=== PATIENT | male | born 1960 | race Caucasian/White ===

== ENCOUNTER 2019-12-16 16:12 | Observation (INO) ==
[2019-12-16] MEDS ORDERED: ASPIRIN CHEW 324 MG PO STA (16:32)
[2019-12-16] MEDS ORDERED: NITROGLYCERIN 0.3 MG/1 TAB 100 TAB BTL SL PRN (16:32)
--- NOTE | 2019-12-16 16:36 | Emergency Department Note ---
Impression & Plan Chest pain, Leukocytosis, Elevated bilirubin ED Provider Note NAME: MAGALIS NGUYEN AGE: 59 SEX: M : 1960 ARRIVES VIA: Walk-In INFORMANT: Patient ED PROVIDER(S): Ankit Menon DO CHIEF COMPLAINT: Chest pain HPI: Patient is a 59-year-old male who presents the ER for precordial chest pain. Has been coming and going since yesterday. He notes that it radiates to his bilateral arms and goes through to his back from midsternum. He admits to feeling short of breath when it comes as well as some dizziness today. He has never had this before. He is a smoker. Denies any history of diabetes, hypertension, hyperlipidemia, CAD or sudden in the family at a young age. Patient denies swelling of calves, recent trips, history of immobilization or recent surgery, prior history of DVT, hemoptysis, and history of malignancy. No other exacerbating or remitting factors. ROS: See above HPI for pertinent positives & negatives. A total of 10 systems reviewed and were otherwise negative. PAST MEDICAL HISTORY:See Below PAST SURGICAL HISTORY:See Below FAMILY HISTORY:See Below SOCIAL HISTORY:See Below HOME MEDICATIONS:See Below ALLERGIES:See Below VITALS:See Below PHYSICAL EXAMINATION: GENERAL: Sitting up in bed, alert, well appearing, well nourished, no distress, non-toxic EYE EXAM: normal conjunctiva. OROPHARYNX: no exudate, no erythema, lips, buccal mucosa, and tongue normal and mucous membranes are moist NECK: supple, no nuchal rigidity, no adenopathy, non-tender CHEST: No reproducible anterior chest wall pain LUNGS: Clear to auscultation. Normal chest wall mechanics HEART: no murmurs, S1 normal and S2 normal ABDOMEN: abdomen soft, non-tender, normo-active bowel sounds, no masses, no rebound or guarding. BACK: Back is symmetrical on inspection and there is no deformity, no midline tenderness, no CVA tenderness. SKIN: no rashes and no bruising UPPER EXTREMITIES: upper extremities are grossly normal. LOWER EXTREMITIES: No pitting edema. Calves are equal bilateral NEURO EXAM: Normal sensorium, cranial nerves II-XII grossly intact, normal speech, no gross weakness of arms, no gross weakness of legs. MEDICAL DECISION MAKING: Patient is a 59-year-old male who presents the ER for precordial chest pain radiating to the back. IV was established blood work was obtained. Labs show a leukocytosis of 20,000. No significant anemia. INR unremarkable. BMP with a mild hyponatremia. LFTs were negative. Bilirubin slightly elevated at 1.2. Troponin was negative. Lipase was unremarkable. He notes the symptoms are only present with exertion and improved with rest. EKG was nondiagnostic. He was g iven aspirin and nitro. He did drop his pressure with the initial nitro. That was stopped. CT of the chest was performed and showed no dissection. Did ultrasound the gallbladder afterwards with a leukocytosis and slightly elevated bilirubin which was unremarkable. Patient was updated bedside discussed with hospitalist admitted for further work-up. He was given IV fluids as well. Triage Nursing notes reviewed. Prior medical records reviewed Vital Signs: reviewed and remarkable for HTN and tachy Differential diagnosis: Differential diagnoses includes but is not limited to acute coronary syndrome, myocardial infarction, pericarditis, pulmonary embolus, aortic dissection, pneumonia, pneumothorax, musculoskeletal, shingles, esophageal. ER treatment provided: See below Diagnostics interpreted by me: ECG: Sinus tachycardia rate of 110 Left axis T wave flattening in aVL No PVCs Normal QTC No old EKGs EKG #2 Sinus rhythm rate at [address] wave changes in aVL No PVCs Normal QTC Subtle Changes in aVL from comparison to old Cardiac Monitoring: An order was placed for continuous cardiac monitoring. The monitor shows a rate of 88 with sinus rhythm. Laboratory studies: As stated above and show below. Imaging studies: CT Angio of the chest shows no dissection or PE Consultation(s): Discussed with the hospitalist for admission. ED COURSE: Procedures: non Critical Care: None Past Med/Surg History Medical History (Updated 12/16/19 @ 22:58 by Ankit Menon DO) Arthritis Bipolar depression BMI 29.0-29.9,adult Bronchitis Depression Insomnia Vitamin D deficiency Surgical History H/O wrist surgery TENDON REPAIR History of colonoscopy S/P inguinal hernia repair X 3 Family History Father MTHFR mutation Hypertension Sister MTHFR mutation Kidney disease Hypertension Aunt Breast cancer Mother MTHFR mutation Family hx of colon cancer Social History Smoking Status: Current every day smoker Cigarettes Per Day: 1/2 PPD X 20+ YRS; Second Hand Exposure: No; Hx Alcohol Use: Yes Alcohol type: beer Hx Substance Use: No Preferred Language: Berm[place]ian Communication Ability: Effective 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 Required: No Beliefs That Will Affect Care: None Current Living Situation: Alone Feels Safe at Home: Yes Allergies Allergies Allergy/AdvReac Type Severity Reaction Status Date / Time No Known Allergies Allergy Verified 12/16/19 17:49 Home Meds Home Medications Medication Instructions Recorded Confirmed albuterol sulfate 2 puff INHALATION Q6H PRN 07/02/19 12/16/19 Results & Data (ED) Vital Signs Vital Signs - 24 hr 12/16/19 16:20 12/16/19 16:55 12/16/19 17:30 Temperature 37.2 C Temperature Source Oral Pulse Rate 119 H 100 H Pulse Rate [Apical] 111 H Pulse Rate from SpO2 Sensor 102 H Respiratory Rate 18 18 Blood Pressure 148/84 H 122/90 Blood Pressure [Right Arm] 122/90 Blood Pressure Mean 105 97 Blood Pressure Mean [Right Arm] 100 Pulse Oximetry 96 94 93 Oxygen Delivery Method Room Air Room Air Sepsis Recent Fever Within 48 Hours No Sepsis New/Unexplained Change in Mental Status No Sepsis Action Taken by Nursing No Action Required 12/16/19 17:40 12/16/19 17:41 12/16/19 17:42 Temperature Temperature Source Pulse Rate 75 54 L 65 Pulse Rate [Apical] Pulse Rate from SpO2 Sensor 73 57 L 63 Respiratory Rate 17 21 20 Blood Pressure 63/37 L 57/32 L Blood Pressure [Right Arm] Blood Pressure Mean 51 38 Blood Pressure Mean [Right Arm] Pulse Oximetry 93 93 95 Oxygen Delivery Method Sepsis Recent Fever Within 48 Hours Sepsis New/Unexplained Change in Mental Status Sepsis Action Taken by Nursing 12/16/19 17:44 12/16/19 17:46 12/16/19 17:48 Temperature Temperature Source Pulse Rate 68 93 H 99 H Pulse Rate [Apical] Pulse Rate from SpO2 Sensor 67 88 Respiratory Rate 19 21 20 Blood Pressure 64/45 L 101/61 83/63 L Blood Pressure [Right Arm] Blood Pressure Mean 47 83 77 Blood Pressure Mean [Right Arm] Pulse Oximetry 94 92 Oxygen Delivery Method Sepsis Recent Fever Within 48 Hours Sepsis New/Unexplained Change in Mental Status Sepsis Action Taken by Nursing 12/16/19 17:51 12/16/19 17:55 12/16/19 18:10 Temperature Temperature Source Pulse Rate 95 H 98 H Pulse Rate [Apical] Pulse Rate from SpO2 Sensor 95 H Respiratory Rate 18 25 H Blood Pressure 91/76 L 107/68 120/79 Blood Pressure [Right Arm] Blood Pressure Mean 86 74 95 Blood Pressure Mean [Right Arm] Pulse Oximetry 93 Oxygen Delivery Method Sepsis Recent Fever Within 48 Hours Sepsis New/Unexplained Change in Mental Status Sepsis Action Taken by Nursing 12/16/19 18:12 12/16/19 18:30 12/16/19 19:00 Temperature Temperature Source Pulse Rate 88 94 H 88 Pulse Rate [Apical] Pulse Rate from SpO2 Sensor 89 94 H 89 Respiratory Rate 17 22 22 Blood Pressure 131/87 112/74 Blood Pressure [Right Arm] Blood Pressure Mean 93 85 Blood Pressure Mean [Right Arm] Pulse Oximetry 95 95 95 Oxygen Delivery Method Room Air Sepsis Recent Fever Within 48 Hours Sepsis New/Unexplained Change in Mental Status Sepsis Action Taken by Nursing 12/16/19 19:30 12/16/19 20:00 12/16/19 20:49 Temperature Temperature Source Pulse Rate 90 96 H Pulse Rate [Apical] Pulse Rate from SpO2 Sensor 90 96 H Respiratory Rate 17 21 Blood Pressure 123/81 125/88 150/97 H Blood Pressure [Right Arm] Blood Pressure Mean 92 97 109 Blood Pressure Mean [Right Arm] Pulse Oximetry 95 95 Oxygen Delivery Method Sepsis Recent Fever Within 48 Hours Sepsis New/Unexplained Change in Mental Status Sepsis Action Taken by Nursing 12/16/19 21:00 Temperature Temperature Source Pulse Rate 89 Pulse Rate [Apical] Pulse Rate from SpO2 Sensor 89 Respiratory Rate 22 Blood Pressure 135/86 Blood Pressure [Right Arm] Blood Pressure Mean 98 Blood Pressure Mean [Right Arm] Pulse Oximetry 95 Oxygen Delivery Method Sepsis Recent Fever Within 48 Hours Sepsis New/Unexplained Change in Mental Status Sepsis Action Taken by Nursing Laboratory Data Result diagrams: 12/16/19 16:47 12/16/19 16:47 Lab Results 12/16/19 12/16/19 12/16/19 Range/Units 16:47 16:47 16:47 WBC 20.71 H (4.8-10.8) K/uL RBC 4.94 (4.7-6.1) M/uL Hgb 15.9 (14.0-18.0) g/dL Hct 45.3 (42-52) % MCV 91.7 (80-100) fL MCH 32.2 (25-34) pg MCHC 35.1 (32-36) g/dL RDW Std Deviation 47.4 H (36.4-46.3) fL RDW Coeff of Bennie 14.1 (11.5-14.5) % Plt Count 325 (130-400) K/uL MPV 10.7 H (7.4-10.4) fL Immature Gran % (Auto) 0.4 % Neut % (Auto) 76.5 % Lymph % (Auto) 10.4 % Person % (Auto) 12.1 % Eos % (Auto) 0.3 % Baso % (Auto) 0.3 % Neut # (Auto) 15.83 H (1.4-6.5) K/uL Lymph # (Auto) 2.16 (1.2-3.4) K/uL Person # (Auto) 2.51 H (0.11-0.59) K/uL Eos # (Auto) 0.06 (0-0.5) K/uL Baso # (Auto) 0.06 (0-0.2) K/uL Immature Gran # (Auto) 0.09 H (0.00-0.02) K/uL PT 11.3 (9.0-12.0) Seconds INR 1.1 (0.9-1.1) APTT 30.8 (21.0-31.0) Seconds PTT Ratio 1.1 Sodium 135 L (136-145) mmol/L Potassium 3.5 (3.5-5.1) mmol/L Chloride 103 (98-107) mmol/L Carbon Dioxide 22 (21-32) mmol/L Anion Gap 10.0 (3-11) BUN 14 (7-18) mg/dl Creatinine 1.02 (0.6-1.4) mg/dl Est Cr Clr Drug Dosing 97.5 ml/min Est GFR ( Amer) 93.5 Est GFR (Non-Af Amer) 80.6 BUN/Creatinine Ratio 13.3 (10-20) Glucose 106 H (70-99) mg/dl Calcium 9.1 (8.5-10.1) mg/dl Total Bilirubin 1.2 H (0.2-1) mg/dl AST 13 L (15-37) U/L ALT 27 (12-78) U/L Alkaline Phosphatase 85 (45-117) U/L Troponin I < 0.015 (0-0.045) ng/ml Total Protein 8.4 H (6.4-8.2) gm/dl Albumin 3.7 (3.4-5.0) gm/dl Globulin 4.7 H (2.5-4.0) gm/dl Albumin/Globulin Ratio 0.8 L (0.9-2) Lipase 44 L (73-393) U/L COVID-19 PCR (Negative) Influenza Type A (PCR) (Neg) Influenza Type B (PCR) (Neg) 12/16/19 12/16/19 Range/Units 20:56 20:56 WBC (4.8-10.8) K/uL RBC (4.7-6.1) M/uL Hgb (14.0-18.0) g/dL Hct (42-52) % MCV (80-100) fL MCH (25-34) pg MCHC (32-36) g/dL RDW Std Deviation (36.4-46.3) fL RDW Coeff of Bennie (11.5-14.5) % Plt Count (130-400) K/uL MPV (7.4-10.4) fL Immature Gran % (Auto) % Neut % (Auto) % Lymph % (Auto) % Person % (Auto) % Eos % (Auto) % Baso % (Auto) % Neut # (Auto) (1.4-6.5) K/uL Lymph # (Auto) (1.2-3.4) K/uL Person # (Auto) (0.11-0.59) K/uL Eos # (Auto) (0-0.5) K/uL Baso # (Auto) (0-0.2) K/uL Immature Gran # (Auto) (0.00-0.02) K/uL PT (9.0-12.0) Seconds INR (0.9-1.1) APTT (21.0-31.0) Seconds PTT Ratio Sodium (136-145) mmol/L Potassium (3.5-5.1) mmol/L Chloride (98-107) mmol/L Carbon Dioxide (21-32) mmol/L Anion Gap (3-11) BUN (7-18) mg/dl Creatinine (0.6-1.4) mg/dl Est Cr Clr Drug Dosing ml/min Est GFR ( Amer) Est GFR (Non-Af Amer) BUN/Creatinine Ratio (10-20) Glucose (70-99) mg/dl Calcium (8.5-10.1) mg/dl Total Bilirubin (0.2-1) mg/dl AST (15-37) U/L ALT (12-78) U/L Alkaline Phosphatase (45-117) U/L Troponin I (0-0.045) ng/ml Total Protein (6.4-8.2) gm/dl Albumin (3.4-5.0) gm/dl Globulin (2.5-4.0) gm/dl Albumin/Globulin Ratio (0.9-2) Lipase (73-393) U/L COVID-19 PCR NEGATIVE (Negative) Influenza Type A (PCR) Neg for Influ A (Neg) Influenza Type B (PCR) Neg for Influ B (Neg) Administered Medications Nitroglycerin (Nitroglycerin 0.3 Mg/1 Tab 100 Tab Btl) 0.3 mg SL PRN PRN PRN Reason: Chest Pain Stop: 01/15/20 16:31 Last Admin: 12/16/19 17:27 Dose: 0.3 mg Documented by: [id number] Discontinued Medications Aspirin (Aspirin Chew 324 Mg) 324 mg PO NOW STA Stop: 12/16/19 16:33 Last Admin: 12/16/19 16:51 Dose: 162 mg Documented by: [id number] Sodium Chloride (Nss 1000ml) 1,000 mls @ 999 mls/hr IV .Q1H1M ONE Stop: 12/16/19 20:47 Last Admin: 12/16/19 21:25 Dose: 999 mls/hr Documented by: [id number] Ioversol (Optiray 320 125ml) 120 ml IV ONCE ONE Stop: 12/16/19 18:03 Last Admin: 12/16/19 18:03 Dose: 120 ml Documented by: [id number] Discharge Plan Visit Data Chief Complaint: Cardiac Assessment Stated Complaint: CHEST PAIN,BACK AND ARM PAIN,DIZZY ED Provider: Ankit Menon Discharge Problem: Chest pain, Leukocytosis, Elevated bilirubin Forms Stand Alone Forms: My [facility] [employer] Prescriptions Prescriptions: No Action albuterol sulfate 90 mcg/actuation Hfa Aerosol Inhaler 2 puff INHALATION Q6H PRN (Reason: Wheezing) RF: 0 Discharge Problem: Chest pain Qualifiers: Chest pain type: unspecified Qualified Code(s): R07.9 - Chest pain, unspecified Leukocytosis Qualifiers: Leukocytosis type: unspecified Qualified Code(s): D72.829 - Elevated white blood cell count, unspecified
[2019-12-16 16:57] LABS: Basophils # (auto) 0.06 K/uL (0-0.2); Basophils % (auto) 0.3 %; Eosinophils # (auto) 0.06 K/uL (0-0.5); Eosinophils % (auto) 0.3 %; Hematocrit (blood only) 45.3 % (42-52); Hemoglobin 15.9 g/dL (14.0-18.0); Immature Granulocytes # (auto) 0.09 K/uL (0.00-0.02); Immature Granulocytes % (auto) 0.4 %; Lymphocytes # (auto) 2.16 K/uL (1.2-3.4); Lymphocytes % (auto) 10.4 %; Mean Corpuscular Hemoglobin 32.2 pg (25-34); Mean Corpuscular Hgb Conc 35.1 g/dL (32-36); Mean Corpuscular Volume 91.7 fL (80-100); Mean Platelet Volume 10.7 fL (7.4-10.4); Monocytes # (auto) 2.51 K/uL (0.11-0.59); Monocytes % (auto) 12.1 %; Neutrophils # (auto) 15.83 K/uL (1.4-6.5); Neutrophils % (auto) 76.5 %; Platelet Count 325 K/uL (130-400); RDW Coefficient of Variation 14.1 % (11.5-14.5); RDW Standard Deviation 47.4 fL (36.4-46.3); Red Blood Count 4.94 M/uL (4.7-6.1); White Blood Count 20.71 K/uL (4.8-10.8)
[2019-12-16 17:11] LABS: INR 1.1 (0.9-1.1); Partial Thromboplastin Ratio 1.1; Partial Thromboplastin Time 30.8 Seconds (21.0-31.0); Prothrombin Time 11.3 Seconds (9.0-12.0)
[2019-12-16 17:14] LABS: Alanine Aminotransferase 27 U/L (12-78); Albumin Level 3.7 gm/dl (3.4-5.0); Aspartate Aminotransferase 13 U/L (15-37); BUN Creatinine Ratio 13.3 (10-20); Blood Urea Nitrogen 14 mg/dl (7-18); Calcium 9.1 mg/dl (8.5-10.1); Carbon Dioxide 22 mmol/L (21-32); Chloride 103 mmol/L (98-107); Creatinine Clr Calc Pharmacy 97.5 ml/min; Est GFR (African American) 93.5; Est GFR (Non-African American) 80.6; Glucose 106 mg/dl (70-99); Lipase 44 U/L (73-393); Potassium 3.5 mmol/L (3.5-5.1); Sodium 135 mmol/L (136-145)
--- NOTE | 2019-12-16 17:14 | XRay Report ---
XR chest 1V portable HISTORY: 59 years-old Male Chest Pain acute atypical chest pain COMPARISON: None TECHNIQUE: Portable AP view of the chest FINDINGS: Cardiac silhouette is mildly enlarged. No pneumothorax, pleural effusion, airspace consolidation or o vert pulmonary edema. Mediastinal contours are within normal limits. Degenerative changes of the shou lders and spine. IMPRESSION: No acute process. ACT 112: Negative or not required by law. The above report was generated using voice recognition software. It may contain grammatical, syntax o r spelling errors. Electronically signed by: Montana Viveros M.D. 12/16/2019 5:12 PM
[2019-12-16 17:19] LABS: Albumin Globulin Ratio 0.8 (0.9-2); Alkaline Phosphatase 85 U/L (45-117); Bilirubin,Total 1.2 mg/dl (0.2-1); Globulin 4.7 gm/dl (2.5-4.0); Total Protein 8.4 gm/dl (6.4-8.2); Troponin I < 0.015 ng/ml (0-0.045)
[2019-12-16] MEDS ORDERED: OPTIRAY 320 125ml IV ONE (18:02)
--- NOTE | 2019-12-16 18:23 | CT Scan Report ---
CT angio chest dissec wo/w con HISTORY: 59 years-old Male ? dissection cp going through to bacl acute chest pain with radiation to the back COMPARISON: Chest radiograph of same day TECHNIQUE: CTA of the chest was obtained both with and without the use of 120 mL Optiray 320 IV contr ast. 3-D coronal and sagittal MIPS were obtained from the axial data set and were submitted for revie w. All measurements were obtained according to NASCET criteria. A dose lowering technique was used co nsistent with the principals alem GUILLAUME. FINDINGS: CTA: The noncontrast scan demonstrates no intramural or mediastinal hematoma. Heart is normal in size. Mod erate coronary artery calcifications. Minimal calcified plaque of the thoracic aorta without aneurysm or dissection. There is patency of the imaged great vessels. The opacified pulmonary artery is unrem arkable. CT CHEST: Unremarkable thyroid. There is a mildly enlarged 2 mm right paratracheal lymph node seen on image 98 series 7. Additional prominent nonenlarged paratracheal and subcarinal lymph nodes are also present. Mild dependent subsegmental bibasilar atelectasis. There is no pneumothorax, pleural effusion or over t pulmonary edema. No airspace consolidation typical for pneumonia. There are no suspicious pulmonary nodules or masses. 6 mm fissural nodule on image 147 series 7 is suggestive of a probable lymph node . Mild secretions within the right mainstem bronchus. Tiny hiatal hernia. No acute process of the ernst ged upper abdomen. Soft tissues are within normal limits. The bones appear intact. IMPRESSION: 1. No acute aortic pathology. 2. Mild tracheobronchial secretions. No airspace consolidation typical for pneumonia. 3. Mild mediastinal adenopathy, possibly reactive. 4. Tiny hiatal hernia. ACT 112: Negative or not required by law. The above report was generated using voice recognition software. It may contain grammatical, syntax o r spelling errors. Electronically signed by: Montana Viveros M.D. 12/16/2019 6:22 PM
[2019-12-16] MEDS ORDERED: SODIUM CHLORIDE 0.9% 1000ML 1,000 ML IV ONE (19:47)
--- NOTE | 2019-12-16 20:48 | Ultrasound Report ---
US gallbladder HISTORY: 59 years-old Male arya bili wbc 20 leukocytosis with elevated LFTs COMPARISON: CTA of the chest of same day TECHNIQUE: Multiple real-time sonographic images of the abdominal right upper quadrant were obtained assessing grayscale appearance and color flow FINDINGS: Pancreas is mostly obscured by bowel gas. The liver is slightly echogenic. No hepatic mass lesion or intrahepatic biliary ductal dilation. Trace layering gallbladder sludge. No associated bladder wall t hickening, shadowing cholelithiasis or pericholecystic fluid. Sonographic Valencia sign reported as neg ative. Normal common bile duct, 4 mm. The imaged right kidney is unremarkable without hydronephrosis. IMPRESSION: 1. No cholelithiasis or sonographic evidence of acute cholecystitis. 2. No biliary ductal dilation. 3. Slightly echogenic appearance of the liver may reflect mild hepatic steatosis. ACT 112: Negative or not required by law. The above report was generated using voice recognition software. It may contain grammatical, syntax o r spelling errors. Electronically signed by: Montana Viveros M.D. 12/16/2019 8:47 PM
[2019-12-16 21:57] LABS: Influenza A virus by PCR Neg for Influ A (Neg); Influenza B virus by PCR Neg for Influ B (Neg)
--- NOTE | 2019-12-16 23:57 | History & Physical Report ---
Date of Service December 16, 2019 Assessment & Plan (1) Bronchitis: Placed on Solu-Medrol 40 mg IV every 12 hours. Ceftriaxone 1 g IV daily Azithromycin 500 mg IV daily Duonebs every 4 hours while awake and every 2 hours when necessary. Patient is COVID-19 negative in the ED this evening Present on Admission?: Yes (2) Chest pain: The patient will be admitted to telemetry for serial cardiac enzymes, serial EKG's, cardiac rhythm monitoring and a 2-D echocardiogram with Dopplers. Present on Admission?: Yes (3) Bipolar depression: On no direct treatment at this time Present on Admission?: Yes History of Present Illness Chief Complaint: The patient presents to the emergency department with complaint of precordial chest pain, intermittent productive cough, dizziness, fatigue and dyspnea on exertion. Primary Care Provider: ALEXX Garcia The patient is a 59-year-old male with a past medical history including bipolar depression, mild obesity, depression, insomnia, and vitamin D deficiency. The patient presents with the above symptoms. He denies any recent travels or sick exposures. He was COVID19 test negative while in the ED tonight. He does have a history of tobacco abuse and presently smokes. Allergies Allergy/AdvReac Type Severity Reaction Status Date / Time No Known Allergies Allergy Verified 12/16/19 17:49 Home Medications Home Medications Medication Instructions Recorded Confirmed Type albuterol sulfate 2 puff INHALATION Q6H PRN 07/02/19 12/16/19 History Past Med/Surg History Medical History (Updated 12/17/19 @ 03:37 by Alo Ball MD) Arthritis Bipolar depression BMI 29.0-29.9,adult Bronchitis Depression Insomnia Vitamin D deficiency Surgical History H/O wrist surgery TENDON REPAIR History of colonoscopy S/P inguinal hernia repair X 3 Family History Father MTHFR mutation Hypertension Sister MTHFR mutation Kidney disease Hypertension Aunt Breast cancer Mother MTHFR mutation Family hx of colon cancer Social History Smoking Status: Current every day smoker Cigarettes Per Day: 1/2 PPD X 20+ YRS; Second Hand Exposure: No; Hx Alcohol Use: Yes Alcohol type: beer Hx Substance Use: No Preferred Language: Kenyan Communication Ability: Effective Pathology Collector Required: No Beliefs That Will Affect Care: None Current Living Situation: Alone Feels Safe at Home: Yes Review of Systems Review of Systems: The patient denies palpitations, lower extremity swelling, sore throat, fevers, chills, sweats, nausea, vomiting, diarrhea , constipation, abdominal pain, pelvic pain, blood in urine or stool, dysuria, urinary frequency or urgency, headache, memory loss, loss of consciousness, rash, abnormal bruising or bleeding, imbalance, focal weakness, numbness or tingling in arms or legs, back or neck pain, or night sweats. The review of systems is otherwise negative other than for that already noted above, and at least 10 systems have been reviewed. Physical Exam Physical Exam: The patient is awake, alert and oriented 3, well developed and well nourished, normocephalic and atraumatic, lying in bed and in no acute distress. HEENT--PERRL, EOMI, mucous membranes and oropharynx dry. Neck--supple. No JVD. No bruits. Thyroid normal, trachea midline, no adenopathy. Heart--normal S1 and S2. No murmurs, rubs or gallops. Lungs--few coarse breath sounds bilaterally. No respiratory distress, no accessory muscle use. Abdomen--normal bowel sounds and soft. Nontender. Nondistended, no hernias or masses, no organomegaly. Extremities--no cyanosis or clubbing. No edema. Dermatologic--normal skin turgor, normal color, no abnormal lymph nodes, no rash. Neurologic--cranial nerves II through XII grossly intact. Rheumatologic--normal range of motion. Psychiatric--normal affect. Results & Data Results & Data ([facility]) Vital Signs (Past 12 Hours) Vital Signs Temp Pulse Pulse Resp BP BP Pulse Ox 12/16/19 23:30 92 H 22 136/86 95 12/16/19 23:00 94 H 22 126/86 95 12/16/19 22:30 90 23 131/90 94 12/16/19 22:00 92 H 21 138/91 96 12/16/19 21:30 91 H 21 140/91 96 12/16/19 21:00 89 22 135/86 95 12/16/19 20:49 96 H 21 150/97 H 95 12/16/19 20:00 125/88 12/16/19 19:30 90 17 123/81 95 12/16/19 19:00 88 22 112/74 95 12/16/19 18:30 94 H 22 131/87 95 12/16/19 18:12 88 17 95 12/16/19 18:10 120/79 12/16/19 17:55 98 H 25 H 107/68 12/16/19 17:51 95 H 18 91/76 L 93 12/16/19 17:48 99 H 20 83/63 L 12/16/19 17:46 93 H 21 101/61 92 12/16/19 17:44 68 19 64/45 L 94 12/16/19 17:42 65 20 57/32 L 95 12/16/19 17:41 54 L 21 63/37 L 93 12/16/19 17:40 75 17 93 12/16/19 17:30 100 H 111 H 18 122/90 122/90 93 12/16/19 16:55 94 12/16/19 16:20 99.0 F 119 H 18 148/84 H 96 Laboratory Results Laboratory Results WBC 20.71 K/uL (4.8-10.8) H 12/16/19 16:47 RBC 4.94 M/uL (4.7-6.1) 12/16/19 16:47 Hgb 15.9 g/dL (14.0-18.0) 12/16/19 16:47 Hct 45.3 % (42-52) 12/16/19 16:47 MCV 91.7 fL (80-100) 12/16/19 16:47 MCH 32.2 pg (25-34) 12/16/19 16:47 MCHC 35.1 g/dL (32-36) 12/16/19 16:47 RDW Std Deviation 47.4 fL (36.4-46.3) H 12/16/19 16:47 RDW Coeff of Bennie 14.1 % (11.5-14.5) 12/16/19 16:47 Plt Count 325 K/uL (130-400) 12/16/19 16:47 MPV 10.7 fL (7.4-10.4) H 12/16/19 16:47 Immature Gran % (Auto) 0.4 % 12/16/19 16:47 Neut % (Auto) 76.5 % 12/16/19 16:47 Lymph % (Auto) 10.4 % 12/16/19 16:47 Spink % (Auto) 12.1 % 12/16/19 16:47 Eos % (Auto) 0.3 % 12/16/19 16:47 Baso % (Auto) 0.3 % 12/16/19 16:47 Neut # (Auto) 15.83 K/uL (1.4-6.5) H 12/16/19 16:47 Lymph # (Auto) 2.16 K/uL (1.2-3.4) 12/16/19 16:47 Spink # (Auto) 2.51 K/uL (0.11-0.59) H 12/16/19 16:47 Eos # (Auto) 0.06 K/uL (0-0.5) 12/16/19 16:47 Baso # (Auto) 0.06 K/uL (0-0.2) 12/16/19 16:47 Immature Gran # (Auto) 0.09 K/uL (0.00-0.02) H 12/16/19 16:47 PT 11.3 Seconds (9.0-12.0) 12/16/19 16:47 INR 1.1 (0.9-1.1) 12/16/19 16:47 APTT 30.8 Seconds (21.0-31.0) 12/16/19 16:47 PTT Ratio 1.1 12/16/19 16:47 Sodium 135 mmol/L (136-145) L 12/16/19 16:47 Potassium 3.5 mmol/L (3.5-5.1) 12/16/19 16:47 Chloride 103 mmol/L (98-107) 12/16/19 16:47 Carbon Dioxide 22 mmol/L (21-32) 12/16/19 16:47 Anion Gap 10.0 (3-11) 12/16/19 16:47 BUN 14 mg/dl (7-18) 12/16/19 16:47 Creatinine 1.02 mg/dl (0.6-1.4) 12/16/19 16:47 Est Cr Clr Drug Dosing 97.5 ml/min 12/16/19 16:47 Est GFR ( Amer) 93.5 12/16/19 16:47 Est GFR (Non-Af Amer) 80.6 12/16/19 16:47 BUN/Creatinine Ratio 13.3 (10-20) 12/16/19 16:47 Glucose 106 mg/dl (70-99) H 12/16/19 16:47 Calcium 9.1 mg/dl (8.5-10.1) 12/16/19 16:47 Total Bilirubin 1.2 mg/dl (0.2-1) H 12/16/19 16:47 AST 13 U/L (15-37) L 12/16/19 16:47 ALT 27 U/L (12-78) 12/16/19 16:47 Alkaline Phosphatase 85 U/L (45-117) 12/16/19 16:47 Troponin I < 0.015 ng/ml (0-0.045) 12/17/19 00:22 Total Protein 8.4 gm/dl (6.4-8.2) H 12/16/19 16:47 Albumin 3.7 gm/dl (3.4-5.0) 12/16/19 16:47 Globulin 4.7 gm/dl (2.5-4.0) H 12/16/19 16:47 Albumin/Globulin Ratio 0.8 (0.9-2) L 12/16/19 16:47 Lipase 44 U/L (73-393) L 12/16/19 16:47 COVID-19 PCR NEGATIVE (Negative) 12/16/19 20:56 Influenza Type A (PCR) Neg for Influ A (Neg) 12/16/19 20:56 Influenza Type B (PCR) Neg for Influ B (Neg) 12/16/19 20:56 Diagnostic Findings [facility], [place] [phone] CT Scan Report Patient: MAGALIS NGUYENAdmit Date: 12/16/19 MR#: [id number]: 8 B [facility] Acct ID:[id number]: [facility] [place] Zip: [place] [address] Age: 59Location: ED Sex: MRoom/Bed: Att Phy:Diagnosis: CHEST PAIN,BACK AND ARM PAIN,DIZZY Sravanthi Phy: Adithya Carbajal CRNPService Date: 12/16/19 Fam Phy: Adithya Carbajal CRNPInterpreting Phy: Edinson Viveros Admit Phy: Ordering Phy: Ankit Menon, cc: ~ CT angio chest dissec wo/w con HISTORY: 59 years-old Male ? dissection cp going through to bacl acute chest pain with radiation to the back COMPARISON: Chest radiograph of same day TECHNIQUE: CTA of the chest was obtained both with and without the use of 120 mL Optiray 320 IV contrast. 3-D coronal and sagittal MIPS were obtained from the axial data set and were submitted for review. All measurements were obtained according to NASCET criteria. A dose lowering technique was used consistent with the principals of AUNDREA. FINDINGS: CTA: The noncontrast scan demonstrates no intramural or mediastinal hematoma. Heart is normal in size. Moderate coronary artery calcifications. Minimal calcified plaque of the thoracic aorta without aneurysm or dissection. There is patency of the imaged great vessels. The opacified pulmonary artery is unremarkable. CT CHEST: Unremarkable thyroid. There is a mildly enlarged 2 mm right paratracheal lymph node seen on image 98 series 7. Additional prominent nonenlarged paratracheal and subcarinal lymph nodes are also present. Mild dependent subsegmental bibasilar atelectasis. There is no pneumothorax, pleural effusion or overt pulmonary edema. No airspace consolidation typical for pneumonia. There are no suspicious pulmonary nodules or masses. 6 mm fissural nodule on image 147 series 7 is suggestive of a probable lymph node. Mild secretions within the right mainstem bronchus. Tiny hiatal hernia. No acute process of the imaged upper abdomen. Soft tissues are within normal limits. The bones appear intact. IMPRESSION: 1. No acute aortic pathology. 2. Mild tracheobronchial secretions. No airspace consolidation typical for pneumonia. 3. Mild mediastinal adenopathy, possibly reactive. 4. Tiny hiatal hernia. ACT 112: Negative or not required by law. The above report was generated using voice recognition software. It may contain grammatical, syntax or spelling errors. Electronically signed by: [place] Viveros M.D. 12/16/2019 6:22 PM Dictated: 12/16/191814 Transcribed: 12/16/191814 [facility], [place] [phone] XRay Report Patient: MAGALIS NGUYENAdmit Date: 12/16/19 MR#: [id number]: 8 [address] [facility] Acct ID:[id number]: Date: [address] [place] [address] Zip: [place] [address] Age: 59Location: ED Sex: MRoom/Bed: Att Phy:Diagnosis: CHEST PAIN,BACK AND ARM PAIN,DIZZY Sravanthi Phy: Adithya Carbajal CRNPService Date: 12/16/19 Fam Phy:Interpreting Phy: Edinson Viveros Admit Phy: Ordering Phy: Ankit Menon DO cc: ~ XR chest 1V portable HISTORY: 59 years-old Male Chest Pain acute atypical chest pain COMPARISON: None TECHNIQUE: Portable AP view of the chest FINDINGS: Cardiac silhouette is mildly enlarged. No pneumothorax, pleural effusion, airspace consolidation or overt pulmonary edema. Mediastinal contours are within normal limits. Degenerative changes of the shoulders and spine. IMPRESSION: No acute process. ACT 112: Negative or not required by law. The above report was generated using voice recognition software. It may contain grammatical, syntax or spelling errors. Electronically signed by: Montana Viveros M.D. 12/16/2019 5:12 PM Dictated: 12/16/191710 Transcribed: 12/16/19 [address] [place], [place] [phone] Ultrasound Report Patient: MAGALIS NGUYENAdmit Date: 12/16/19 MR#: [id number]: 8 B [facility] Acct ID:[id number]: Date: [address] [place] [address] Zip: [place] [address] Age: 59Location: ED Sex: MRoom/Bed: Att Phy:Diagnosis: CHEST PAIN,BACK AND ARM PAIN,DIZZY Sravanthi Phy: Adithya Carbajal CRNPServmartita Date: 12/16/19 Fam Phy: Adithya Carbajal CRNPInterpreting Phy: Edinson Viveros Admit Phy: Ordering Phy: Menon, Ankit M., DO cc: ~ US gallbladder HISTORY: 59 years-old Male arya bili wbc 20 leukocytosis with elevated LFTs COMPARISON: CTA of the chest of same day TECHNIQUE: Multiple real-time sonographic images of the abdominal right upper quadrant were obtained assessing grayscale appearance and color flow FINDINGS: Pancreas is mostly obscured by bowel gas. The liver is slightly echogenic. No hepatic mass lesion or intrahepatic biliary ductal dilation. Trace layering gallbladder sludge. No associated bladder wall thickening, shadowing cholelithiasis or pericholecystic fluid. Sonographic Valencia sign reported as negative. Normal common bile duct, 4 mm. The imaged right kidney is unremarkable without hydronephrosis. IMPRESSION: 1. No cholelithiasis or sonographic evidence of acute cholecystitis. 2. No biliary ductal dilation. 3. Slightly echogenic appearance of the liver may reflect mild hepatic steat osis. ACT 112: Negative or not required by law. The above report was generated using voice recognition software. It may contain grammatical, syntax or spelling errors. Electronically signed by: Montana Viveros M.D. 12/16/2019 8:47 PM Dictated: 12/16/192043 Transcribed: 12/16/192043 Code Status & VTE Plan Code Status Full code VTE Prophylaxis Plan VTE Prophylaxis will be ordered: Yes PG Care Time/CCT Total # of Minutes Spent Total Time Spent with Patient: Total time spent is greater than 50% in coordination of care (as documented) at patient's floor/unit and/or counseling patient: Coding Level of Care Code 42145 OBS Care - Level 3 Diagnoses Bronchitis J40 Chest pain R07.9 Chest pain type: unspecified Bipolar depression F31.9 (1) Chest pain Chest pain type: unspecified Qualified Code(s): R07.9 - Chest pain, unspecified
[2019-12-17] MEDS ORDERED: ALUMINUM/MAGNESIUM SUSP 30 ML UDC PO PRN (00:38)
[2019-12-17] MEDS ORDERED: ONDANSETRON INJ 2 MG/ML 2 ML VIAL IV PRN (00:38)
[2019-12-17] MEDS ORDERED: ACETAMINOPHEN 325 MG TAB PO PRN (00:38)
[2019-12-17] MEDS ORDERED: MAGNESIUM HYDROXIDE SUSP 30 ML UDC PO PRN (00:38)
[2019-12-17] MEDS: methylPREDNISolone 40 MG in SYRINGE 0 ML IV SCH ×3 (01:18→09:41)
[2019-12-17] MEDS ORDERED: cefTRIAXone SODIUM 2,000 MG in DEXTROSE 5% 50 ML IV SCH (02:00)
[2019-12-17] MEDS ORDERED: AZITHROMYCIN 500 MG in DEXTROSE 5% 250 ML IV SCH (03:00)
[2019-12-17 08:08] LABS: Basophils # (auto) 0.01 K/uL (0-0.2); Basophils % (auto) 0.1 %; Eosinophils # (auto) 0.01 K/uL (0-0.5); Eosinophils % (auto) 0.1 %; Hematocrit (blood only) 43.8 % (42-52); Hemoglobin 15.2 g/dL (14.0-18.0); Immature Granulocytes # (auto) 0.04 K/uL (0.00-0.02); Immature Granulocytes % (auto) 0.3 %; Lymphocytes % (auto) 8.6 %; Mean Corpuscular Hgb Conc 34.7 g/dL (32-36); Mean Corpuscular Volume 92.2 fL (80-100); Mean Platelet Volume 10.6 fL (7.4-10.4); Monocytes % (auto) 1.6 %; Neutrophils % (auto) 89.3 %; Platelet Count 292 K/uL (130-400); RDW Coefficient of Variation 14.2 % (11.5-14.5); RDW Standard Deviation 48.1 fL (36.4-46.3); Red Blood Count 4.75 M/uL (4.7-6.1); White Blood Count 12.86 K/uL (4.8-10.8)
[2019-12-17 08:41] LABS: Albumin Level 3.4 gm/dl (3.4-5.0); BUN Creatinine Ratio 14.9 (10-20); Calcium 8.9 mg/dl (8.5-10.1); Creatinine Clr Calc Pharmacy 126.1 ml/min; Est GFR (African American) 114.7; Magnesium 2.4 mg/dl (1.8-2.4)
[2019-12-17 08:42] LABS: Phosphorus 1.7 mg/dl (2.5-4.9)
[2019-12-17] MEDS: ASPIRIN 81 MG ECTAB PO SCH ×2 (09:40→09:41)
--- NOTE | 2019-12-17 13:55 | Discharge Summary ---
Date of Service December 17, 2019 Admission HPI Per Admitting Provider The patient is a 59-year-old male with a past medical history including bipolar depression, mild obesity, depression, insomnia, and vitamin D deficiency. The patient presents with the above symptoms. He denies any recent travels or sick exposures. He was COVID19 test negative while in the ED tonight. He does have a history of tobacco abuse and presently smokes. Admission Exam Per Admitting Provider The patient is awake, alert and oriented 3, well developed and well nourished, normocephalic and atraumatic, lying in bed and in no acute distress. HEENT--PERRL, EOMI, mucous membranes and oropharynx dry. Neck--supple. No JVD. No bruits. Thyroid normal, trachea midline, no adenopathy. Heart--normal S1 and S2. No murmurs, rubs or gallops. Lungs--few coarse breath sounds bilaterally. No respiratory distress, no accessory muscle use. Abdomen--normal bowel sounds and soft. Nontender. Nondistended, no hernias or masses, no organomegaly. Extremities--no cyanosis or clubbing. No edema. Dermatologic--normal skin turgor, normal color, no abnormal lymph nodes, no rash. Neurologic--cranial nerves II through XII grossly intact. Rheumatologic--normal range of motion. Psychiatric--normal affect. Principal Diagnosis Acute bronchitis Discharge Exam Constitutional well developed, well nourished, cooperative and comfortable; no acute distress Respiratory normal respiratory effort, lungs clear to auscultation Auscultation: no crackles, no rales, no rhonchi and no wheezes Cardiovascular RRR, no murmur, no edema Heart Sounds: normal S1 and normal S2; no gallop, no murmur and no cardiac rub Gastrointestinal (Abdomen) normal bowel sounds, soft, nontender, no hepatosplenomegaly Skin no rashes, warm and dry Psychiatric A+Ox3, euthymic affect Affect: euthymic affect Discharge Data Allergies Allergy/AdvReac Type Severity Reaction Status Date / Time No Known Allergies Allergy Verified 12/16/19 17:49 Consultations 12/16/19 18:40 ED Decision to Admit Stat 12/17/19 00:38 Consult Case Management - Discharge Planning Routine Ordered Studies 12/16/19 16:32 CT angio chest dissec wo/w con Stat 12/16/19 18:31 gallbladder Stat Hospital Course (1) Bronchitis: Mr. Carty was came to the ED on 12/16/19 with complaints of chest pain, productive cough, dizziness, fatigue, and dyspnea on exertion. He was found to have acute bronchitis. He was treated with methylprednisolone 40mg IV q8h, ceftriaxone 2g IV q24h, and azithromycin 500mg IV q24h. He progressed well on this treatment. Given the possibility of COPD with his history of smoking, he was discharged with azithromycin 500mg on day one and 250mg PO on day two to five. Additionally he was given prednisone PO starting at 60mg and tapering down by 10mg every two days. He was also started on inhaled tiotropium bromide daily and albuterol 90mcg 2 puffs q6h prn. We suggested that he have PFTs around mid-January to evaluate for COPD definitively. Patient also expressed interest in smoke cessation. He was given nicotine patches and education on long-term solutions. (2) Chest pain: Total Time Total Time Spent Total Time Spent (In Minutes): >30 Discharge Plan Discharge Items Patient Disposition: Home - Self-Care Reason For Visit: CHEST PAIN Discharge Diagnosis: Acute bronchitis Activity: Resume your previous activity Non-emergency contact: Primary Care Provider Call non-emergency contact if: you have any medication questions, your symptoms worsen and your temperature is above 101 Follow-up/Referrals: Adithya Carbajal CRNP [Primary Care Provider] - Diet: Regular Addtl Attending Provider Instructions: You were admitted to [facility] [place] for chest pain, shortness of breath, productive cough, dizziness, and fatigue. You were found to have bronchitis and were treated with intravenous steroids, antibiotics, and combination of inhaled medications. You progressed well and will continue with oral steroid treatment, antibiotics, and some inhalers at home. The steroids will be started at a higher dose and decreased gradually over 12 days. You will take antibiotics for 5 days. Finally you will start treatment with inhaled medications as discussed until you are evaluated with pulmonary function tests by your primary care provider (PCP). These tests should be done in about a month to six weeks and will check for the possibility of you having COPD. An important factor in your recovery and continued health will be smoking cessa tion. We will start you on a nicotine patch as you requested, and you should follow up this matter with your PCP for long-term solutions. Please follow up with your PCP within this week to discuss our recommendations and develop a plan for you moving forward. Pending Studies at Discharge: No Stand-Alone Forms: My [facility], Work/School Release (Inpt), Smoking Cessation Medications and DC Order Prescriptions: New albuterol sulfate 90 mcg/actuation HFA aerosol inhaler 2 inh inhalation Q6H PRN (Reason: shortness of breath or wheezing) Qty: 8.5 RF: 0 azithromycin 250 mg tablet See Rx Instructions .ROUTE .COMPLEX Qty: 6 RF: 0 tiotropium bromide 18 mcg capsule, w/inhalation device 1 cap inhalation DAILY Qty: 30 RF: 0 prednisone 10 mg tablet 10 mg PO UD Qty: 42 RF: 0 nicotine [Nicoderm CQ] 14 mg/24 hr patch 24 hour 1 patch transdermal DAILY Qty: 28 RF: 0 Discontinued albuterol sulfate 90 mcg/actuation Hfa Aerosol Inhaler 2 puff INHALATION Q6H PRN (Reason: Wheezing) RF: 0 Discharge Orders: Discharge Order (Routine); Ordered 12/17/19 [facility] Data Admit Date/Time: 12/16/19 23:06 Attending Provider: Ankit Asencio Admit Provider: Alo Ball Primary Care Provider: Adithya Carbajal Other Providers: Alo Ball Other Interventions: Discharge Summary Assessment (RN) Last Done: 12/17/19 14:15 Supervising Physician Co-Signing Physician Notes I personally examined the patient and verified all fuchs points of history and exam, discussed case, and agree with decision making with Dr Ontiveros. feeling better wants to go home, wants to quit smoking mg noted nad heent nc at mmm lungs quiet but overall clear - just faint exp wheeze b/l uppler lobes no accessory muscles good effort chest pain/cough/bronchitis -improving- viewing as possible COPD exacerbation - but not yet PFTs so just that he clinically appears c/w COPD. -safe/stable for home - steroid taper, course of atypical coverage, inhalers -PFTs ~6-8wks to establish +/- dx then ongoing treatment from there (ie continue spiriva and/or escalate, vs able to drop) -smoke cessation leukocytosis -follow up CBC as outpt stable for home, otherwise as above Resident Activity Tracking Resident Involvement: Resident Care Provided Care Provided: Adult [facility]
[2019-12-17] MEDS ORDERED: NICOTINE 14 MG/24 HR PATCH TD SCH (14:30)
--- NOTE | 2019-12-17 19:19 | Billing Data ---
Date of Service December 17, 2019 Coding Level of Care Code 71417 OBS Care - Discharge
--- NOTE | 2019-12-17 22:06 | Electrocardiogram Report ---
Test Reason : Blood Pressure : / mmHG Vent. Rate : 110 BPM Atrial Rate : 110 BPM P-R Int : 134 ms QRS Dur : 094 ms QT Int : 350 ms P-R-T Axes : 052 -61 048 degrees QTc Int : 473 ms Poor data quality, interpretation may be adversely affected Sinus tachycardia Incomplete right bundle branch block Left anterior fascicular block Abnormal ECG No previous ECGs available Confirmed by Jayjay Jacobson ([id number]) on 12/17/2019 10:05:39 PM Referred By: REFERRED SELF Confirmed By:Jayjay Jacobson
--- NOTE | 2019-12-17 22:14 | Electrocardiogram Report ---
Test Reason : Blood Pressure : / mmHG Vent. Rate : 097 BPM Atrial Rate : 097 BPM P-R Int : 126 ms QRS Dur : 090 ms QT Int : 372 ms P-R-T Axes : 057 -59 045 degrees QTc Int : 472 ms Normal sinus rhythm Left anterior fascicular block Nonspecific ST and T wave abnormality Prolonged QT Abnormal ECG When compared with ECG of 16-DEC-2019 16:29, No significant change was found Confirmed by Jayjay Jacobson ([id number]) on 12/17/2019 10:14:30 PM Referred By: REFERRED SELF Confirmed By:Jayjay Jacobson
== END 2019-12-17 14:49 | disposition home or self-care (01) ==
LOC: 2N 16:12 → ED 16:12 → SUATTDRO 23:06 → 2N 23:44